=== PATIENT | female | born 1960 | race African-American/Black ===

== ENCOUNTER 2021-04-10 20:12 | Inpatient (IN) | payer MEDICARE, OTHER ==
[~2021-04-10] VITALS: Ht 170.2 cm; Wt 76.7 kg
--- NOTE | 2021-04-10 20:24 | NUR ---
Patient BIB [facility] unit [facility] BLS, patient brought here for medical clearance for admission to MHU. Placed on 5150 Hold FURNITURE ARRANGER d/t GD & DTO.
[2021-04-10] MEDS ORDERED: NITROFURANTOIN/NITROFURAN MAC 100 MG CAPSULE PO ONE ×2 (20:45→21:09)
[2021-04-10 20:51] LABS: *BILIRUBIN,URIN NEGATIVE (NEGATIVE); *BLOOD, URINE NEGATIVE (NEGATIVE); *CLARITY,URINE CLEAR (CLEAR); *COLOR,URINE YELLOW (YELLOW); *KETONES,URINE NEGATIVE (NEGATIVE); *UROBILINOGEN,URINE 0.2 E.U./dl (NORMAL); LEUKOCYTE ESTERASE ,URINE 1+ (NEGATIVE); NITRITE, URINE NEGATIVE (NEGATIVE); UGLUCOSE NEGATIVE (NEGATIVE)
[2021-04-10 20:58] LABS: HEMATOCRIT 36.4 % (31.2-41.9); MEAN CORPUSCULAR HEMOGLOBIN 30.4 uug (24.7-32.8); MEAN CORPUSCULAR VOLUME 88.2 fL (75.5-95.3); PLATELET COUNT (AUTO) 287 K/uL (179-408)
[2021-04-10 20:59] LABS: BACTERIA,URINE FEW /HPF (NONE SEEN); MUCUS,URINE FEW /LPF (0-FEW); RBC,URINE 0-3 /HPF (0-3); SQUAMOUS EPITHELIAL CELL,UR FEW /HPF (NONE SEEN); URINE AMORPHOUS PHOSPHATES FEW /HPF
[2021-04-10 21:01] LABS: *AMPHETAMINE, URINE POSITIVE (NEGATIVE); *CANNABINOID, URINE NEGATIVE (NEGATIVE); *COCCAINE, URINE NEGATIVE (NEGATIVE); *OPIATE, URINE NEGATIVE (NEGATIVE); *PHENCYCLIDINE SCREEN,URINE NEGATIVE (NEGATIVE)
--- NOTE | 2021-04-10 21:05 | NUR ---
Patient is resting comfortably in bed with eyes closed, no acute distress noted.
[2021-04-10 21:10] LABS: CARBON DIOXIDE 29 mmol/L (21-32); CHLORIDE 108 mmol/L (98-107); CREATININE 0.8 mg/dL (0.6-1.3); GLUCOSE 101 mg/dL (74-106); POTASSIUM 3.2 mmol/L (3.5-5.1); UREA NITROGEN, BLOOD 12 mg/dL (7-18)
[2021-04-10 21:16] LABS: ALANINE AMINOTRANSFERASE 25 U/L (14-59); ALKALINE PHOSPHATASE 108 U/L (50-136); ASPARTATE AMINOTRANSFERASE 14 U/L (15-37); BILIRUBIN,DIRECT 0.1 mg/dL (0.0-0.2); BILIRUBIN,TOTAL 0.2 mg/dL (0.2-1.0); TOTAL PROTEIN, SERUM 6.3 g/dL (6.4-8.2)
[2021-04-10 21:17] LABS: ETHANOL < 3 MG/DL (0-0)
--- NOTE | 2021-04-10 21:34 | NUR ---
[facility] called to request most up to date medication recon on patient. Gave fax, will receive soon per secretery.
[2021-04-10] MEDS ORDERED: CHOL2000 PO (21:58)
[2021-04-10] MEDS ORDERED: AMLO10TA59 PO (21:59)
[2021-04-10] MEDS ORDERED: OMEP20CA15 PO (22:00)
[2021-04-10] MEDS ORDERED: HYDR-3980 PO (22:00)
[2021-04-10] MEDS ORDERED: HYDR25TA4 PO (22:00)
[2021-04-10] MEDS ORDERED: POTASSIUM CHLORIDE 20 MEQ TAB.PRT.SR PO ONE (22:30)
--- NOTE | 2021-04-10 22:52 | NUR ---
Report given to VALE Huffman, patient will be going to room 140B U, under doctors Indio and brad.
[2021-04-10] MEDS ORDERED: MAG HYDROX/AL HYDROX/SIMETH 30 ML LIQUID UDC PO PRN (23:30)
[2021-04-10] MEDS ORDERED: BLOOD SUGAR DIAGNOSTIC 1 EACH STRIP VI ONE (23:30)
--- NOTE | 2021-04-10 23:30 | NUR ---
Pt. admitted to U 140, under care of Dr. Borjas/Love. Belongs List completed
--- NOTE | 2021-04-10 23:58 | NUR ---
Pt. admitted to MHU , under care of Dr. Borjas and Dr. Aleman Belongs List completed
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
[2021-04-11 02:10] VITALS: BP 112/68
[2021-04-11] MEDS: LORAZEPAM 0.5 MG TABLET PO PRN (08:59)
[2021-04-11] MEDS: ACETAMINOPHEN 325 MG TABLET PO PRN (09:00)
[2021-04-11] MEDS: NICOTINE 7 MG/24HR PATCH TD SCH (09:00)
[2021-04-11 09:29] VITALS: BP 116/79
[2021-04-11] MEDS: HYDROCHLOROTHIAZIDE 25 MG TABLET PO SCH (10:00)
[2021-04-11] MEDS: AMLODIPINE 10 MG TABLET PO SCH (10:50)
[2021-04-11] MEDS: PANTOPRAZOLE SODIUM 40 MG TABLET.DR PO SCH (10:50)
[2021-04-11] MEDS: NITROFURANTOIN/NITROFURAN MAC 100 MG CAPSULE PO SCH ×2 (10:51→21:11)
[2021-04-11] MEDS: CHOLECALCIFEROL 1,000 UNIT TABLET PO SCH (10:51)
[2021-04-11] MEDS: HYDROCODONE/APAP 10-325 MG TABLET PO PRN ×2 (11:03→18:07)
[2021-04-11] MEDS ORDERED: HYDROCODONE/APAP 10-325 MG TABLET PO PRN (12:00)
[2021-04-11] MEDS: OLANZAPINE ZYDIS 5 MG TAB.RAPDIS PO PRN (12:22)
[2021-04-11] MEDS: OLANZAPINE 5 MG TABLET PO SCH ×2 (12:24→18:07)
[2021-04-11 16:18] VITALS: BP 120/69
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
[2021-04-11 20:21] VITALS: BP 91/56
[2021-04-12] MEDS: PANTOPRAZOLE SODIUM 40 MG TABLET.DR PO SCH (06:39)
[2021-04-12 08:00] VITALS: BP 103/70
[2021-04-12 08:20] LABS: POTASSIUM 2.9 mmol/L (3.5-5.1)
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
[2021-04-12] MEDS: OLANZAPINE 5 MG TABLET PO SCH ×2 (08:39→16:45)
[2021-04-12] MEDS: AMLODIPINE 10 MG TABLET PO SCH (08:39)
[2021-04-12] MEDS: NITROFURANTOIN/NITROFURAN MAC 100 MG CAPSULE PO SCH ×2 (08:39→20:08)
[2021-04-12] MEDS: CHOLECALCIFEROL 1,000 UNIT TABLET PO SCH (08:39)
[2021-04-12] MEDS: HYDROCHLOROTHIAZIDE 25 MG TABLET PO SCH ×2 (08:40→09:00)
[2021-04-12] MEDS: NICOTINE 7 MG/24HR PATCH TD SCH (08:40)
[2021-04-12] MEDS ORDERED: Medication Not On Formulary EA (Omeprazole 20 MG) PO SCH (09:00)
--- NOTE | 2021-04-12 09:14 | NUR ---
GPS: Nursing Notes: Potassium Level Low: Per Lab. results: Potassium Level 2.9, informed Dr. Johnson to hold Hydrochlorothiazide today, and to give Potassium ordered, continue to monitor for safety, continue with treatment plan.
[2021-04-12 09:42] LABS: CREATININE 1.1 mg/dL (0.6-1.3)
[2021-04-12] MEDS: POTASSIUM CHLORIDE 10 MEQ TAB.PRT.SR PO SCH ×2 (09:43→12:56)
--- NOTE | 2021-04-12 10:26 | NUR ---
FLACO Initial Discharge Plan: Patient lives at home located at [address] [place] [address]; ([phone]). Patient would want to return back home upon discharge. This SW contacted patient's son Everardo ([phone]) to discuss treatment and discharge plan, he was unavailable. This SW left a detailed voicemail. SW will coordinate with family and doctor to coordinate proper discharge.
--- NOTE | 2021-04-12 10:27 | NUR ---
Social Work Note/Substance Abuse Intervention: Patient was provided with a brief substance abuse intervention and referred to [facility] ([phone]), [facility] ([phone]), and [facility] ([phone]) for smoking.
--- NOTE | 2021-04-12 10:27 | NUR ---
SW Family Contact: This SW contacted patient's son Everardo ([phone]) to discuss treatment and discharge plan, he was unavailable. This SW left a detailed voicemail.
--- NOTE | 2021-04-12 15:54 | NUR ---
SW Family Contact: This SW contacted patient's son Everardo ([phone]) and discussed patient's discharge plan and treatment plan.
[2021-04-12] MEDS: HYDROCODONE/APAP 10-325 MG TABLET PO PRN (17:17)
[2021-04-12 20:04] VITALS: BP 101/70
[2021-04-13] MEDS: PANTOPRAZOLE SODIUM 40 MG TABLET.DR PO SCH (06:24)
[2021-04-13 07:30] VITALS: BP 104/65
[2021-04-13] MEDS: CHOLECALCIFEROL 1,000 UNIT TABLET PO SCH (08:34)
[2021-04-13] MEDS: NITROFURANTOIN/NITROFURAN MAC 100 MG CAPSULE PO SCH ×2 (08:34→20:04)
[2021-04-13] MEDS: OLANZAPINE 5 MG TABLET PO SCH ×2 (08:35→16:54)
[2021-04-13] MEDS: HYDROCHLOROTHIAZIDE 25 MG TABLET PO SCH (08:36)
[2021-04-13] MEDS: AMLODIPINE 10 MG TABLET PO SCH (08:36)
[2021-04-13] MEDS: NICOTINE 7 MG/24HR PATCH TD SCH (08:36)
--- NOTE | 2021-04-13 11:40 | NUR ---
SW Family Contact: This SW and Dr. Almean contacted patient's son Everardo ([phone]) and discussed patient's discharge plan and treatment plan. Everardo provided collateral information for Dr. Aleman. Everardo is requested for this SW and Dr. Aleman to discuss possible SNF options with the patient Everardo was informed that the patient will need to agree to go to a SNF. Everardo is agreeable with patient returning home as that is what she wants.
--- NOTE | 2021-04-13 11:42 | NUR ---
SW Individual Note: This SW and Dr. Aleman met with patient to discuss treatment and discharge plan. Dr. Aleman informed patient that her son Jackie is requesting a SNF placement, however patient is independent and refuses to go to a SNF. Dr. Aleman is agreeable with patient returning home as of now.
[2021-04-13 15:12] VITALS: BP 106/67
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
[2021-04-13] MEDS: MAGNESIUM HYDROXIDE 30 ML LIQUID UDC PO PRN (16:54)
[2021-04-13] MEDS: HYDROCODONE/APAP 10-325 MG TABLET PO PRN (18:43)
[2021-04-13 20:34] VITALS: BP 95/56
[2021-04-13] MEDS: TEMAZEPAM 7.5 MG CAPSULE PO PRN (21:16)
[2021-04-14] MEDS: ACETAMINOPHEN 325 MG TABLET PO PRN ×2 (04:15→20:01)
[2021-04-14] MEDS: PANTOPRAZOLE SODIUM 40 MG TABLET.DR PO SCH (06:34)
[2021-04-14] MEDS: HYDROCODONE/APAP 10-325 MG TABLET PO PRN ×2 (06:44→15:38)
--- NOTE | 2021-04-14 06:58 | NUR ---
GPS: Remain calm and cooperative with meds and care. c/o right hip pain. norco given as ordered. slept 5 hrs through the night. took shower this morning. continue plan of care.
[2021-04-14 07:30] VITALS: BP 93/55
[2021-04-14] MEDS: NITROFURANTOIN/NITROFURAN MAC 100 MG CAPSULE PO SCH ×2 (08:47→20:01)
[2021-04-14] MEDS: OLANZAPINE 5 MG TABLET PO SCH ×3 (08:47→20:01)
[2021-04-14] MEDS: CHOLECALCIFEROL 1,000 UNIT TABLET PO SCH (08:47)
[2021-04-14] MEDS: HYDROCHLOROTHIAZIDE 25 MG TABLET PO SCH (08:48)
[2021-04-14] MEDS: AMLODIPINE 10 MG TABLET PO SCH (08:49)
[2021-04-14] MEDS: NICOTINE 7 MG/24HR PATCH TD SCH (08:53)
--- NOTE | 2021-04-14 15:17 | NUR ---
FLACO Note: Pt entered this writers office and she stated that she has a home and does not want to go to a SNF.
--- NOTE | 2021-04-14 15:57 | NUR ---
GPS: PT ALERT AND ORIENTED X3. COMPLAINT OF PAIN 9/10 ON RIGHT HIP, GIVEN NORCO AND TOLERATED WELL. ABLE TO MAKE NEEDS KNOWN. PT ABLE TO CALL FAMILY. DENIES SUICIDAL IDEATION, HALUCINATIONS. PT COOPERATIVE WITH CARE. MEDIACTION COMPLIANT. INDEPENDENT WITH ADL'S AND SELF CARE.
[2021-04-14 16:39] VITALS: BP 107/63
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
[2021-04-14 20:07] VITALS: BP 100/63
[2021-04-14] MEDS: TEMAZEPAM 7.5 MG CAPSULE PO PRN (21:23)
[2021-04-15] MEDS: PANTOPRAZOLE SODIUM 40 MG TABLET.DR PO SCH (06:17)
[2021-04-15 07:30] VITALS: BP 96/54
[2021-04-15] MEDS: CHOLECALCIFEROL 1,000 UNIT TABLET PO SCH (08:46)
[2021-04-15] MEDS: NITROFURANTOIN/NITROFURAN MAC 100 MG CAPSULE PO SCH ×2 (08:47→20:40)
[2021-04-15] MEDS: HYDROCODONE/APAP 10-325 MG TABLET PO PRN (08:48)
[2021-04-15] MEDS: AMLODIPINE 10 MG TABLET PO SCH (08:49)
[2021-04-15] MEDS: HYDROCHLOROTHIAZIDE 25 MG TABLET PO SCH (08:50)
[2021-04-15] MEDS: OLANZAPINE 5 MG TABLET PO SCH ×3 (09:00→20:40)
[2021-04-15] MEDS: NICOTINE 7 MG/24HR PATCH TD SCH (09:00)
[2021-04-15] MEDS: MAGNESIUM HYDROXIDE 30 ML LIQUID UDC PO PRN (11:30)
--- NOTE | 2021-04-15 13:34 | NUR ---
FLACO PC Hearing: Patient had 5250 probable cause hearing today and it was upheld for grave disability.
[2021-04-15 16:00] VITALS: BP 100/67
--- NOTE | 2021-04-15 18:26 | NUR ---
GPS: pt refused zyprexa medication this 1699. pt stated that she does not like her doctor and she wants to change her doctor. she said she talked to human rights advocate and told her that she can pick her own psychiatrist and also refused medication, even upon discussing the risk and benifits of taking the medication. pt had a talk with psychiatrist and was angry and in bad mood after.
[2021-04-15 20:00] VITALS: BP 102/66
--- NOTE | 2021-04-15 21:41 | NUR ---
Received patient in bed sleeping. Arousable when name being called. AAOx3. Needs attended. Compliant with meds, refuse zyprexa only. BP 102/66 HR 90 resp 20 pulse ox 100% RA Temp 99.4 Ambulates to BR. Voiding well. Kept comfortable. No aggressive behavior noted. Will monitor patient.
[2021-04-15] MEDS: TEMAZEPAM 7.5 MG CAPSULE PO PRN (22:35)
[2021-04-16] MEDS: ACETAMINOPHEN 325 MG TABLET PO PRN (05:00)
[2021-04-16] MEDS: PANTOPRAZOLE SODIUM 40 MG TABLET.DR PO SCH (06:18)
--- NOTE | 2021-04-16 06:39 | NUR ---
End of shift notes: Quiet night. Slept well for 7hrs & 15 minutes. No agitation noted. Calm and cooperative. Had a shower this am. Tylenol given earlier for generalized pain. Continent of bowel and bladder.
[2021-04-16 07:30] VITALS: BP 103/71
[2021-04-16] MEDS: CHOLECALCIFEROL 1,000 UNIT TABLET PO SCH (08:32)
[2021-04-16] MEDS: AMLODIPINE 10 MG TABLET PO SCH (08:34)
[2021-04-16] MEDS: HYDROCHLOROTHIAZIDE 25 MG TABLET PO SCH (08:35)
[2021-04-16] MEDS: NICOTINE 7 MG/24HR PATCH TD SCH (08:39)
[2021-04-16] MEDS: OLANZAPINE 5 MG TABLET PO SCH ×3 (08:40→20:40)
--- NOTE | 2021-04-16 09:14 | NUR ---
SW Family Contact: This SW received a phone call from patient's son Everardo ([phone]) and this SW stated that pt does not want him to be involved in her care. This SW was listening to son Everardo but was sharing minimal information.
--- NOTE | 2021-04-16 09:25 | NUR ---
FLACO Note: SW spoke with pt and stated that her son contacted the unit and stated that he will pick her up upon dc. She stated "No" my friend Don ([phone]) will black pickler pt upon discharge.
--- NOTE | 2021-04-16 09:30 | NUR ---
SW Family Contact: This SW contacted patient's son Everardo ([phone]) and stated pt does not want him to pick her up and this SW is not able to share any information in regards to her discharge/treatment plan.
--- NOTE | 2021-04-16 09:34 | NUR ---
FLACO Note: SW contacted patient's friend Sancho ([phone]) to inform of patient's discharge plan for Monday04/24/21 as patient requested for Sancho to pick her up and take her home. Waiting for a call back.
--- NOTE | 2021-04-16 09:35 | NUR ---
SW Note: Dr. Aleman informed patient requested to change psychiatrists on 04/15/21. VALE Jane spoke with patient who stated she would like Dr. Johnson to be her new psychiatrist. Lucinda spoke with Dr. Johnson who did not accept new patient. Dr. Aleman made aware.
--- NOTE | 2021-04-16 10:02 | NUR ---
SW Note: Patient's son Everardo ([phone]) constantly calling the unit and asking the same questions to this radio script writer and to the nursing staff. This SW expressed that patient does not want the staff to disclose any information at this time. SW stated that the staff has to respect pt's wishes as pt does not have a DPOA. Everardo wanted to know the process of becoming a DPOA and this SW gave brief information in terms of DPOA process.
--- NOTE | 2021-04-16 11:55 | NUR ---
FLACO Friend Contact: FLACO spoke with patient's friend Sancho ([phone]) who stated that he will grain picker pt around 12PM on Thursday 04/19.
[2021-04-16] MEDS: HYDROCODONE/APAP 10-325 MG TABLET PO PRN ×2 (12:48→20:51)
[2021-04-16 16:51] VITALS: BP 96/65
--- NOTE | 2021-04-16 18:50 | NUR ---
GPS: pt seen by psychaitrist today. pt still insisted her rights to have a new psychiatrist. refused zyprexa medication and also nicotine patch. likes to walk at the hallway. calls son and uses phone to call other friends. pt was given norco this afternoon for right lower back pain 05/07. pt no aggressive behavior.
[2021-04-16 20:22] VITALS: BP 117/69
[2021-04-17] MEDS: TEMAZEPAM 7.5 MG CAPSULE PO PRN ×2 (00:45→22:35)
[2021-04-17] MEDS: ACETAMINOPHEN 325 MG TABLET PO PRN ×2 (05:40→12:52)
[2021-04-17] MEDS: PANTOPRAZOLE SODIUM 40 MG TABLET.DR PO SCH (06:04)
--- NOTE | 2021-04-17 06:35 | NUR ---
Patient slept 5.15 hrs.No agressive behavior during the shift. Refused routine HS medication .Explained risk and benefits. Patent still refused and started to cry stated she feels ok and doesnt need some medication however patient c/o right lower back pain last night .Medicated with NOrco with good effect.Took shower this morning.
[2021-04-17 07:30] VITALS: BP 98/64
[2021-04-17] MEDS: CHOLECALCIFEROL 1,000 UNIT TABLET PO SCH (08:30)
[2021-04-17] MEDS: HYDROCHLOROTHIAZIDE 25 MG TABLET PO SCH (08:30)
[2021-04-17] MEDS: OLANZAPINE 5 MG TABLET PO SCH ×4 (08:31→21:00)
[2021-04-17] MEDS: NICOTINE 7 MG/24HR PATCH TD SCH (08:31)
[2021-04-17] MEDS: AMLODIPINE 10 MG TABLET PO SCH (08:31)
[2021-04-17 15:29] VITALS: BP 136/69
[2021-04-17 20:16] VITALS: BP 111/62
[2021-04-17] MEDS: HYDROCODONE/APAP 10-325 MG TABLET PO PRN (20:32)
[2021-04-17] MEDS: OLANZAPINE ZYDIS 5 MG TAB.RAPDIS PO PRN (23:32)
[2021-04-17] MEDS: LORAZEPAM 0.5 MG TABLET PO PRN (23:32)
--- NOTE | 2021-04-18 04:29 | NUR ---
Received patient, awake and alert. C/O pain . Medicated per order. The patient refused Zyprexa at the start of the shift, but was willing to take it later in the night without difficulty. Patient was up and down most of the night. No aggressive behavior tonight, but patient is labile. Ruminating on how she is being treated by her son and crying at times. Even thought this patient has been refusing her medications, the patient will be discharged on Monday by Dr. Aleman per the social workers note. Continuing to monitor for delusional , paranoid thinking and continuing to provide a safe environment . Medication compliance is encouraged, along with education about the medications.
[2021-04-18] MEDS: PANTOPRAZOLE SODIUM 40 MG TABLET.DR PO SCH (06:17)
[2021-04-18] MEDS: CHOLECALCIFEROL 1,000 UNIT TABLET PO SCH (08:34)
[2021-04-18] MEDS: HYDROCHLOROTHIAZIDE 25 MG TABLET PO SCH (08:35)
[2021-04-18] MEDS: NICOTINE 7 MG/24HR PATCH TD SCH (08:35)
[2021-04-18] MEDS: OLANZAPINE 5 MG TABLET PO SCH ×3 (08:35→21:00)
[2021-04-18] MEDS: AMLODIPINE 10 MG TABLET PO SCH (08:35)
[2021-04-18 09:12] VITALS: BP 117/77
[2021-04-18] MEDS: HYDROCODONE/APAP 10-325 MG TABLET PO PRN ×2 (10:44→21:58)
[2021-04-18 16:38] VITALS: BP 106/71
[2021-04-18 20:00] VITALS: BP 98/71
--- NOTE | 2021-04-19 02:15 | NUR ---
Received patient at the start of the shift, in the garcia. Friendly and calm. Patient requested medication for generalized "pain" a little later on. This comic book writer gave patient a snack and the patient went to her room. When the comic book writer came in to the room to give the patient the pain medication, it was refused and the patients demeanor had completely change. The patient only said " No , I do not want that. What are you going to bring next, my discharge papers ?". This comic book writer was unable to get the patient to respond to any questions. And As the night went on, the patient paced up and down the garcia, ignoring the staff and mumbling words under her breath. This comic book writer is monitoring the patient closely for behavior escalation. No hours of sleep noted so far in this shift. All medications refused . Patient is aware of discharge later today but is not willing to express her feelings about it.
[2021-04-19] MEDS: PANTOPRAZOLE SODIUM 40 MG TABLET.DR PO SCH ×2 (06:46→08:19)
[2021-04-19 07:49] VITALS: BP 117/74
--- NOTE | 2021-04-19 08:14 | NUR ---
Discharge Note: Patient will be discharged back home located [address] [facility] [address] [facility] [address] [place] [id number]. Taxi transportation at 1PM. Patient appeared to be happy to be going back home. Patient is alert and oriented x3. Patient denies visual/auditory hallucinations. Patient denies suicidal or homicidal ideation. Patient will follow up for intake evaluation for psychiatry at [address] [address] ([phone]) on 04/23/21 at 1:30PM with clinician Perlita via telehealth. Patient will follow up with her primary physician Dr. Huddleston [address] [facility] [address] ([phone]) on 04/20/2021 at 10:20AM. Patient was provided for resources to [facility] ([phone]), [facility] ([phone]), and [facility] ([phone]) for using alcohol. Patient presented with euthymic mood and congruent affect.
[2021-04-19] MEDS: CHOLECALCIFEROL 1,000 UNIT TABLET PO SCH (08:17)
[2021-04-19 08:18] VITALS: BP 117/74
[2021-04-19] MEDS: HYDROCHLOROTHIAZIDE 25 MG TABLET PO SCH (08:18)
[2021-04-19] MEDS: AMLODIPINE 10 MG TABLET PO SCH (08:18)
[2021-04-19] MEDS: HYDROCODONE/APAP 10-325 MG TABLET PO PRN (08:19)
[2021-04-19] MEDS: NICOTINE 7 MG/24HR PATCH TD SCH (08:20)
[2021-04-19] MEDS: OLANZAPINE 5 MG TABLET PO SCH (08:20)
--- NOTE | 2021-04-19 12:45 | NUR ---
GPS: Nursing Notes: Discharge Notes: Patient is awake and responding to her name, cooperative with nursing care, following staff directions, patient denies SI/HI, denies AH/VH, denies pain or discomfort, denies SOB. Dr. Aleman examined the patient and discharge her home at [address] [place] [address]. [address], [place] [address], patient's friend Sancho picked her up, took all her belongings and valuables with her, prescription and instructions given to the patient. Patient will follow up for intake evaluation for psychiatry at [address] [address] ([phone]) on 04/23/21 at 1:30PM with clinician Perlita via telehealth. Patient will follow up with her primary physician Dr. Huddleston [address] [facility] [address] ([phone]) on 04/20/2021 at 10:20AM. Patient was provided for resources to [facility] ([phone]), [facility] ([phone]), and [facility] ([phone]) for using alcohol.
--- NOTE | 2021-04-19 13:26 | NUR ---
FLACO APS Contact: FLACO received a call from APS Cloth Shrinking Machine Operator Helper Mila ([phone]) requesting some collateral information. FLACO informed patient is being discharged today and Mila stated she will be following up with the patient at her home.
== END 2021-04-19 12:45 | disposition home or self-care (01) | DRG 885 ==
LOC: ER 20:15 → GPS 23:07
PROVIDERS: ADMIT Psychiatry & Neurology Psychosomatic Medicine; ATTEND Family Medicine
DX: F25.9 Schizoaffective disorder, unspecified (principal); N39.0 Urinary tract infection, site not specified; E44.1 Mild protein-calorie malnutrition; F23 Brief psychotic disorder; F15.159 Other stimulant abuse with stimulant-induced psychotic disorder, unspecified; I10 Essential (primary) hypertension; E87.6 Hypokalemia; F39 Unspecified mood [affective] disorder; F60.9 Personality disorder, unspecified; K21.9 Gastro-esophageal reflux disease without esophagitis; Z20.822 Contact with and (suspected) exposure to COVID-19; Z73.6 Limitation of activities due to disability; E88.09 Other disorders of plasma-protein metabolism, not elsewhere classified; Z72.89 Other problems related to lifestyle; Z96.653 Presence of artificial knee joint, bilateral; Z87.891 Personal history of nicotine dependence
CPT/HCPCS: 36415; 85025; 87086; 93005; 97161; A4663; A9150; G0480